=== PATIENT | female | born 1970 | race Caucasian/White ===

== ENCOUNTER 2018-02-08 07:49 | Outpatient (CLI) | payer OTHER ==
[~2018-02-08 07:49] MED LIST: CARI350T PO; HYDR-569 PO; NAPR-1154 PO
[2018-02-08 08:30] LABS: ALANINE AMINOTRANSFERASE 24 U/L (12-78); ALBUMIN 3.4 G/DL (3.4-5.0); ALKALINE PHOSPHATASE 60 IU/L (46-116); AMYLASE 27 U/L (25-115); ANION GAP 8 (8-16); ASPARTATE AMINO TRANSFERASE 15 U/L (10-37); BILIRUBIN,TOTAL 0.3 MG/DL (0.1-1.0); BLOOD UREA NITROGEN 16 MG/DL (7-18); BUN/CREATININE RATIO 21.6 (6.6-38.0); CALCIUM 8.7 MG/DL (8.5-10.1); CHLORIDE 102 MMOL/L (99-107); CREATININE 0.74 MG/DL (0.40-0.90); GLUCOSE 102 MG/DL (70-104); LIPASE 177 U/L (73-393); POTASSIUM 3.6 MMOL/L (3.5-5.1); SODIUM 138 MMOL/L (135-145); TOTAL CARBON DIOXIDE 27.6 MMOL/L (24-32); TOTAL PROTEIN 6.8 G/DL (6.4-8.2); eGFR 84 ML/MIN
== END 2018-02-08 23:59 | disposition home or self-care (01) ==
LOC: LAB 07:49
PROVIDERS: ATTEND Family Medicine
DX: R10.84 Generalized abdominal pain (principal)
CPT/HCPCS: 36415; 80053; 82150; 83690

== ENCOUNTER 2018-04-04 09:57 | Emergency (ER) | payer OTHER ==
[~2018-04-04] VITALS: Ht 175.3 cm; Wt 68.0 kg
[2018-04-04] MEDS ORDERED: triamcinolone acetonide 40mg/ml inj IM ONE (10:40)
[2018-04-04] MEDS ORDERED: BUPIVAcaine/PF 2.5 mg/ml (0.25%) 30ml vial IJ ONE (10:40)
[2018-04-04] MEDS ORDERED: BUPIVAcaine/PF 2.5mg/ml (0.25%) 10ml vial IJ ONE (10:50)
[2018-04-04 11:41] VITALS: BP 162/92
== END 2018-04-04 11:43 | disposition home or self-care (01) ==
LOC: ER 09:57
DX: S43.401A Unspecified sprain of right shoulder joint, initial encounter (principal); G89.29 Other chronic pain; Z88.0 Allergy status to penicillin; Z88.6 Allergy status to analgesic agent; Z79.899 Other long term (current) drug therapy; X58.XXXA Exposure to other specified factors, initial encounter; Y93.89 Activity, other specified; Y92.89 Other specified places as the place of occurrence of the external cause; Y99.8 Other external cause status
CPT/HCPCS: 20610; 99284; A6449; J3301; J3490

== ENCOUNTER 2018-07-05 08:31 | Outpatient (CLI) | payer OTHER ==
[~2018-07-05 08:31] MED LIST changes: +HYDR-4383 PO; -HYDR-569 PO
[2018-07-05] MEDS ORDERED: gadopentetate dimeglumine 7.5 MMOL/15 ML syringe ONE (10:45)
== END 2018-07-05 23:59 | disposition home or self-care (01) ==
LOC: RAD 08:31
PROVIDERS: ATTEND Family Medicine
DX: H53.9 Unspecified visual disturbance (principal)
CPT/HCPCS: 70553; A9579

== ENCOUNTER 2018-11-30 15:24 | Outpatient (CLI) | payer OTHER ==
[2018-12-04] MEDS ORDERED: gadopentetate dimeglumine 7.5 MMOL/15 ML syringe ONE (12:16)
== END 2018-11-30 23:59 | disposition home or self-care (01) ==
LOC: RAD 15:24
PROVIDERS: ATTEND Family Medicine
DX: R51 Headache (principal); J34.89 Other specified disorders of nose and nasal sinuses; H53.9 Unspecified visual disturbance; E03.9 Hypothyroidism, unspecified
CPT/HCPCS: 70553; A9577

== ENCOUNTER 2018-12-15 11:14 | Day surgery (SDC) | payer OTHER ==
[2018-12-15] VITALS (7 sets, daily range): BP systolic 119–132; BP diastolic 75–87
[~2018-12-15] VITALS: Ht 175.3 cm; Wt 68.1 kg
[2018-12-15] MEDS ORDERED: LIDOcaine 1%/PF 5ML 10 MG/ML VIAL ONE (12:00)
[2018-12-15] MEDS ORDERED: IBUP-1984 PO (12:19)
[2018-12-15] MEDS ORDERED: ZOLP10TA5 PO (12:19)
[2018-12-15] MEDS ORDERED: LEVO75TA PO (12:19)
[2018-12-15 15:35] LABS: GLUCOSE,CSF 53 MG/DL (40-75); TOTAL PROTEIN,CSF 43 MG/DL (15-45)
[2018-12-15 16:19] LABS: APPEARANCE,CSF CLEAR; CSF RBC 4 /CU MM (0); CSF SUPERNATANT COLOR COLORLESS; CSF VOLUME 12 ML; CSF WBC CT 0 /CU MM (0-5); TUBE# COUNTED 4
[2018-12-19 05:17] LABS: IMMUNOGLOBULIN G, QN, SERUM 880 mg/dL (700-1600)
[2018-12-19 11:11] LABS: IMMUNOGLOBULIN G, QN CSF 1.8 mg/dL (0.0-8.6); VDRL, CSF Non Reactive (Non Rea:<1:1)
== END 2018-12-15 16:00 | disposition home or self-care (01) ==
LOC: SSTAY O 11:14
DX: G35 Multiple sclerosis (principal)
CPT/HCPCS: 36415; 62270; 77003; 82040; 82042; 82784; 82945; 83873; 83916; 84157; 85610; 86592; 87015; 87070; 89051; J2001

== ENCOUNTER 2019-01-08 12:24 | Emergency (ER) | payer OTHER ==
[~2019-01-08] VITALS: Ht 177.8 cm; Wt 68.2 kg
[~2019-01-08 12:24] MED LIST changes: -CARI350T PO; -HYDR-4383 PO; +IBUP-1984 PO; +LEVO75TA PO; -NAPR-1154 PO; +ZOLP10TA5 PO
[2019-01-08] MEDS ORDERED: SUMAtriptan succ. 6 MG/0.5ml vial SQ ONE (14:05)
[2019-01-08] MEDS ORDERED: dexamethasone sod phosphate 10mg/ml inj IM STA (14:05)
--- NOTE | 2019-01-08 14:33 | NUR ---
PT. STATES SHE HAS A WORSENING SIU AFTER RECEIVING HER MEDICATIONS. I INFORMED SHANNAN MAYS ABOUT THE PT'S WORSENING SIU, NO VERBAL ORDERS WERE GIVEN.
[2019-01-08] MEDS ORDERED: proCHLORperazine 10 MG/2 ml inj IM ONE (15:15)
[2019-01-08] MEDS ORDERED: PROC5TAB56 PO (16:06)
[2019-01-08 16:22] VITALS: BP 143/96
== END 2019-01-08 16:25 | disposition home or self-care (01) ==
LOC: ER 12:25
DX: G43.909 Migraine, unspecified, not intractable, without status migrainosus (principal); H53.149 Visual discomfort, unspecified; G89.29 Other chronic pain; Z88.0 Allergy status to penicillin; Z88.6 Allergy status to analgesic agent; Z79.899 Other long term (current) drug therapy
CPT/HCPCS: 96372; 99283; J0780; J1100; J3030

== ENCOUNTER 2019-03-02 08:50 | Outpatient (CLI) | payer OTHER ==
[~2019-03-02 08:50] MED LIST changes: +PROC5TAB56 PO
[2019-03-03] MEDS ORDERED: gadopentetate dimeglumine 10 MMOL/20 ML syringe IV ONE (09:22)
== END 2019-03-02 23:59 | disposition home or self-care (01) ==
LOC: RAD 08:50
PROVIDERS: ATTEND Psychiatry & Neurology Neurology
DX: R53.1 Weakness (principal); R29.898 Other symptoms and signs involving the musculoskeletal system; M54.9 Dorsalgia, unspecified
CPT/HCPCS: 70551; 72156; 72157; A9579; 72158

== ENCOUNTER 2019-07-28 14:34 | Emergency (ER) | payer OTHER ==
[~2019-07-28] VITALS: Ht 175.3 cm; Wt 68.0 kg
[2019-07-28 14:47] VITALS: BP 133/90
[2019-07-28] MEDS ORDERED: ketorolac trometh inj. 60 MG/2 ML VIAL IM ONE (15:55)
[2019-07-28] MEDS ORDERED: ondansetron 4mg rapidly disintigrating tab PO ONE (15:55)
[2019-07-28] MEDS ORDERED: HYDROcodone/acetaminophen 5mg/325mg tablet PO ONE (15:55)
[2019-07-28] MEDS ORDERED: GABA-532 PO (15:56)
[2019-07-28] MEDS ORDERED: CYCL-1 PO (15:56)
[2019-07-28 17:01] LABS: PREOP URINE HCG NEGATIVE (NEGATIVE)
[2019-07-28 17:05] LABS: CLARITY,URINE CLEAR (Clear); COLOR,URINE YELLOW (Yellow); GLUCOSE, URINE NEGATIVE (Neg); KETONES,URINE NEGATIVE (Neg); LEUKOCYTE ESTERASE ,URINE NEGATIVE (Neg); NITRITES, URINE NEGATIVE (Neg); OCCULT BLOOD,URINE LARGE (Neg); PROTEIN,URINE NEGATIVE (Neg); UROBILINOGEN,URINE 0.2 E.U/dL (0.2-1.0)
[2019-07-28 17:10] LABS: UA COLLECTION TYPE CLN CATCH MIDSTREAM
[2019-07-28 17:11] LABS: BACTERIA,URINE 1+ /HPF (Neg); MUCUS STRANDS NONE SEEN /LPF (Neg); RBC,URINE 0-2 /HPF (0-2); SQUAMOUS EPITHELIAL CELL,UR MODERATE /LPF (FEW); WBC,URINE 0-4 /HPF (0-4)
[2019-07-28] MEDS ORDERED: cyclobenzaprine 10mg tablet PO ONE (17:25)
== END 2019-07-28 17:49 | disposition home or self-care (01) ==
LOC: ER 14:37
DX: S23.3XXA Sprain of ligaments of thoracic spine, initial encounter (principal); G43.909 Migraine, unspecified, not intractable, without status migrainosus; G89.29 Other chronic pain; Z88.0 Allergy status to penicillin; Z88.6 Allergy status to analgesic agent; Z79.899 Other long term (current) drug therapy; X50.1XXA Overexertion from prolonged static or awkward postures, initial encounter; Y93.89 Activity, other specified; Y92.89 Other specified places as the place of occurrence of the external cause; Y99.9 Unspecified external cause status
CPT/HCPCS: 71045; 72074; 81001; 81025; 96372; 99284; J1885

== ENCOUNTER 2019-07-30 17:18 | Emergency (ER) | payer OTHER ==
[~2019-07-30] VITALS: Ht 175.3 cm; Wt 90.0 kg
[~2019-07-30 17:18] MED LIST changes: +CYCL-1 PO; +GABA-532 PO
[2019-07-30] MEDS ORDERED: dexamethasone sod phosphate 10mg/ml inj IM STA (18:04)
[2019-07-30] MEDS: LIDOcaine 5% patch TP ONE ×2 (18:14→19:41)
--- NOTE | 2019-07-30 18:23 | NUR ---
SHANNAN LEMUS MADE AWARE PATIENT REFUSING TO PUT ON CERVICAL COLLAR AND LIDODERM PATCHES AT THIS TIME DUE TO 10/10 PAIN. PA IN TO ASSESS PATIENT.
[2019-07-30] MEDS ORDERED: oxyCODONE/APAP 10/325mg tablet PO ONE (18:30)
[2019-07-30] MEDS ORDERED: METH4TAB81 PO (18:44)
[2019-07-30] MEDS ORDERED: ketamine 10mg/ml 20ml inj 30 MG in normal saline 100ml IV soln 97 ML IV ONE (19:55)
--- NOTE | 2019-07-30 20:57 | NUR ---
KETAMINE GTT ALMOST FINISHED, PT STARTING TO HOLLER OUT AND IN PAIN AND DR. BELL AT BEDSIDE , HE SUSPECTES SHE IS HAVING A "BAD TRIP" FROM THE KETAMINE. VERBAL RECEIVED FOR ATIVAN 0.5 MG IV. PT CRYING AND REPORTING HER PAIN IS SEVERE, PT THEN ASKING WHERE AM I...". MD EXPLAINING THAT SHE IS HAVING SOME REACTION TO THE KETAMINE. SHE REPORTS THE PAIN HAS NOT IMPROVED. MD TO GIVE DOES OF DILAUDID IV.
[2019-07-30] MEDS ORDERED: LORazepam 2 mg/ml vial ONE (20:59)
[2019-07-30] MEDS ORDERED: HYDROmorphone 1 mg/ml syringe IV ONE (21:05)
[2019-07-30] MEDS ORDERED: OXYC-134 PO (21:19)
[2019-07-30 21:50] VITALS: BP 124/80
== END 2019-07-30 21:53 | disposition home or self-care (01) ==
LOC: ER 17:20
DX: M43.6 Torticollis (principal); M54.2 Cervicalgia; R53.1 Weakness; G43.909 Migraine, unspecified, not intractable, without status migrainosus; G89.29 Other chronic pain; F10.99 Alcohol use, unspecified with unspecified alcohol-induced disorder; Z88.0 Allergy status to penicillin; Z88.6 Allergy status to analgesic agent; Z79.899 Other long term (current) drug therapy; Y90.9 Presence of alcohol in blood, level not specified
CPT/HCPCS: 72141; 96365; 96372; 96375; 99284; J1100; J1170; J2060; 96374

== ENCOUNTER 2019-08-06 07:59 | Outpatient (CLI) | payer OTHER ==
[~2019-08-06 07:59] MED LIST changes: +METH4TAB81 PO; +OXYC-134 PO
[2019-08-06 08:53] LABS: BASOPHILS # (AUTO) 0.1 X10'3 (0-0.2); BASOPHILS % (AUTO) 0.6 % (0-1); EOSINOPHILS # (AUTO) 0.1 X10'3 (0-0.9); EOSINOPHILS % (AUTO) 0.8 % (0-6); HEMATOCRIT 42.6 % (35.0-45.0); HEMOGLOBIN 14.6 g/dl (12.0-16.0); LYMPHOCYTES # (AUTO) 1.7 X10'3 (1.1-4.8); LYMPHOCYTES % (AUTO) 16.8 % (21-51); MEAN CORPUSCULAR HGB CONC 34.2 g/dL (33.0-36.5); MEAN CORPUSCULAR VOLUME 90.6 FL (78-98); MEAN PLATELET VOLUME 7.3 FL (7.4-10.4); MONOCYTES # (AUTO) 0.5 X10'3 (0-0.9); NEUTROPHILS # (AUTO) 7.7 X10'3 (1.8-7.7); NEUTROPHILS % (AUTO) 76.8 % (42-75); PLATELET COUNT 290 X10'3 (140-440); RED BLOOD COUNT 4.71 X10'6 (4.20-5.60); RED CELL DISTRIBUTION WIDTH 12.4 % (11.5-14.5)
[2019-08-06 09:05] LABS: HEMOGLOBIN A1C 5.4 % (4.5-6.2)
[2019-08-07 10:11] LABS: FSH, SERUM 14.1 mIU/mL (.); LUTEINIZING HORMONE 9.7 mIU/mL (.); PROGESTERONE 4.9 ng/mL (.); THIIODOTHRONINE, FREE, SERUM 2.8 pg/mL (2.0-4.4)
[2019-08-08 11:17] LABS: VITAMIN D, 1,25 DIHYDROXY 40.8 pg/mL (19.9-79.3)
[2019-08-09 11:04] LABS: TESTOSTERONE, FREE, DIRECT 0.7 pg/mL (0.0-4.2)
== END 2019-08-06 23:59 | disposition home or self-care (01) ==
LOC: LAB 07:59
PROVIDERS: ATTEND Physician Assistant
DX: N95.1 Menopausal and female climacteric states (principal); R53.83 Other fatigue
CPT/HCPCS: 36415; 82652; 82670; 83001; 83002; 83036; 84144; 84402; 84403; 84439; 84443; 84481; 85025

== ENCOUNTER 2020-10-06 08:35 | Outpatient (CLI) | payer BC ==
[2020-10-06 10:00] LABS: CLARITY,URINE SLIGHTLY CLOUDY (Clear); COLOR,URINE YELLOW (Yellow); GLUCOSE, URINE NEGATIVE (Neg); KETONES,URINE NEGATIVE (Neg); LEUKOCYTE ESTERASE ,URINE NEGATIVE (Neg); NITRITES, URINE NEGATIVE (Neg); OCCULT BLOOD,URINE TRACE-INTACT (Neg); PROTEIN,URINE NEGATIVE (Neg); UROBILINOGEN,URINE 0.2 E.U/dL (0.2-1.0)
[2020-10-06 10:09] LABS: UA COLLECTION TYPE CLN CATCH MIDSTREAM
[2020-10-06 10:10] LABS: BASOPHILS # (AUTO) 0.1 X10'3 (0-0.2); EOSINOPHILS # (AUTO) 0.1 X10'3 (0-0.9); EOSINOPHILS % (AUTO) 1.4 % (0-6); HEMATOCRIT 39.3 % (35.0-45.0); HEMOGLOBIN 13.3 g/dl (12.0-16.0); LYMPHOCYTES # (AUTO) 1.1 X10'3 (1.1-4.8); LYMPHOCYTES % (AUTO) 20.6 % (21-51); MEAN CORPUSCULAR HEMOGLOBIN 31.7 PG (27.0-31.0); MEAN CORPUSCULAR HGB CONC 33.9 g/dL (33.0-36.5); MEAN CORPUSCULAR VOLUME 93.6 FL (78-98); MEAN PLATELET VOLUME 7.8 FL (7.4-10.4); MONOCYTES # (AUTO) 0.4 X10'3 (0-0.9); MONOCYTES % (AUTO) 7.6 % (2-12); NEUTROPHILS # (AUTO) 3.9 X10'3 (1.8-7.7); NEUTROPHILS % (AUTO) 69.4 % (42-75); PLATELET COUNT 248 X10'3 (140-440); RED CELL DISTRIBUTION WIDTH 12.6 % (11.5-14.5); WHITE BLOOD COUNT 5.6 X10'3 (4.5-11.0)
[2020-10-06 10:10] LABS: BACTERIA,URINE 2+ /HPF (Neg); SQUAMOUS EPITHELIAL CELL,UR FEW /LPF (FEW)
[2020-10-06 10:12] LABS: RBC,URINE 0-2 /HPF (0-2); WBC,URINE 0-4 /HPF (0-4)
[2020-10-06 10:39] LABS: ALANINE AMINOTRANSFERASE 28 U/L (12-78); ALBUMIN 3.6 G/DL (3.4-5.0); ALKALINE PHOSPHATASE 69 IU/L (46-116); ANION GAP 9 (8-16); ASPARTATE AMINO TRANSFERASE 19 U/L (10-37); BILIRUBIN,TOTAL 0.3 MG/DL (0.1-1.0); BLOOD UREA NITROGEN 20 MG/DL (7-18); BUN/CREATININE RATIO 26.7 (6.6-38.0); CALCIUM 8.8 MG/DL (8.5-10.1); CHLORIDE 103 MMOL/L (99-107); CHOL/HDL RATIO 1.6 (0.00-4.99); CHOLESTEROL 170 MG/DL (0-200); CREATININE 0.75 MG/DL (0.40-0.90); GLUCOSE 97 MG/DL (70-104); HDL CHOLESTEROL 105 MG/DL (35-60); LDL CHOLESTEROL 39 MG/DL (50-100); POTASSIUM 3.8 MMOL/L (3.5-5.1); SODIUM 138 MMOL/L (135-145); TOTAL CARBON DIOXIDE 25.9 MMOL/L (24-32); TOTAL PROTEIN 7.3 G/DL (6.4-8.2); TRIGLYCERIDES 95 MG/DL (20-135); eGFR 82 ML/MIN
== END 2020-10-06 23:59 | disposition home or self-care (01) ==
LOC: LAB 08:35
PROVIDERS: ATTEND Family Medicine
DX: E03.9 Hypothyroidism, unspecified (principal); R53.83 Other fatigue; R20.0 Anesthesia of skin
CPT/HCPCS: 36415; 80053; 80061; 81001; 84439; 84443; 85025